=== PATIENT | male | born 1965 | race Caucasian/White ===

== ENCOUNTER → 2016-08-23 | Outpatient (CLI) | payer OTHER ==
--- NOTE | 2016-08-26 09:02 | REP ---
MR LUMBAR SPINE WITHOUT CONTRAST: HISTORY: Spondylosis. Decreased signal intensity on T2-weighted images is present in the L5-S1 intervertebral disc. The disc is decreased in height. These findings are consistent with disc degeneration. A diffuse disc bulge and small central disc protrusion are present at the L1-2 level. There is minimal compression of the thecal sac. The L1 nerves exit the neural foramina without compression. A diffuse disc bulge is present at the L1-2 level. There is minimal compression of the thecal sac. The L2 nerves exit the neural foramina without compression. There is no disc bulge or herniation at the L3-4 level. The L3 nerves exit the neural foramina without compression. A diffuse disc bulge is present at the L4-5 level. There is minimal compression of the thecal sac. There is hypertrophy of the posterior articulating facets. The L4 nerves exit the neural foramina without compression. A diffuse disc bulge is present at the L5-S1 level. There is minimal compression of the thecal sac. There is hypertrophy of the posterior articulating facets. There is compression of the L5 nerves in the neural foramina. The conus medullaris is normal in appearance terminating at the level of the L1-2 intervertebral disc. There is an old compression fracture of the L1 vertebral body with minimal height loss. Increased signal intensity on T2-weighted images is present in the endplates of the L1, L5, and S1 vertebral bodies. This represents degenerative change. IMPRESSION: 1. Diffuse disc bulge and small central disc protrusion at the L1-2 level with minimal thecal sac compression. 2. Diffuse disc bulges at the L2-3, L4-5, and L5-S1 levels with minimal thecal sac compression. Signed by Reji Mares MD 08/26/2016 09:19 A
--- NOTE | 2016-08-26 12:48 | REP ---
MR CERVICAL SPINE WITHOUT CONTRAST: HISTORY: Spondylosis. A disc bulge is present at the C5-6 level. There is minimal effacement of the thecal sac without spinal cord compression. Bilateral uncinate process hypertrophy is present. This produces moderate and mild narrowing of the right and left C5 neural foramen respectively. A disc bulge is present at the C6-7 level. There is minimal effacement of the thecal sac without spinal cord compression. Bilateral uncinate process hypertrophy is present. This produces minimal and mild narrowing of the right and left C6 neural foramina respectively. There is no other disc bulge or herniation. The remaining neural foramina are patent. The spinal cord is normal in signal intensity. The C6-7 intervertebral disc is decreased in height consistent with disc degeneration. Normal signal intensity is present in the cervical vertebral bodies. IMPRESSION: There is cervical spondylosis at the C5-6 and C6-7 levels without spinal cord compression. Signed by Reji Mares MD 08/26/2016 01:07 P
== END ==
LOC: M RAD 16:56
PROVIDERS: ATTEND Neurological Surgery
DX: M47.896 Other spondylosis, lumbar region (principal)

== ENCOUNTER → 2017-01-14 | Outpatient (CLI) | payer OTHER ==
[~2017-01-14] MED LIST: METHACHOLINE KIT (J7674) INH ONE
--- NOTE | 2017-01-14 14:46 | PFTRPT ---
Tech: Camille PINEDO RRT Age: 51 Sex: Male Race: Height: 70.50 Inches Weight: 252.00 Lbs BSA: 2.31 Diagnosis: R06.00 METHACHOLINE CHALLENGE REPORT: ORDERING PROVIDER: Sasha Badillo M.D. DATE OF SERVICE: 01/14/17 INTERPRETATION: The study was of excellent technical quality. Under protocol, methacholine was administered. Even after a maximal dose of 25 mg (188.875 CDUs) of methacholine , no provocation dose was ever achieved. IMPRESSION: Negative methacholine challenge study. MTDD
== END ==
LOC: M CARPUL 13:17
PROVIDERS: ATTEND Internal Medicine Pulmonary Disease
DX: R06.00 Dyspnea, unspecified (principal)

== ENCOUNTER 2020-10-12 18:21 | Emergency (ER) | payer MEDICARE, OTHER ==
[~2020-10-12] VITALS: Ht 182.9 cm; Wt 122.7 kg
[2020-10-12 18:55] LABS: BASO # 0.1 10^3/uL (0.0-0.2); BASO % 0.6 % (0.0-1.0); EOS # 0.4 10^3/uL (0.0-0.5); EOS % 4.8 % (0.0-3.0); HEMATOCRIT 44.4 % (42.0-52.0); HEMOGLOBIN 15.6 g/dl (13.5-17.5); LYMPH # 2.1 10^3/uL (1.5-5.0); LYMPH % 27.4 % (24.0-44.0); MEAN CORPUSCULAR HEMOGLOBIN 32.7 pg (27.0-33.0); MEAN CORPUSCULAR HGB CONC 35.1 g/dl (32.0-36.5); MEAN CORPUSCULAR VOLUME 93.1 fl (80.0-96.0); MONO # 0.7 10^3/uL (0.0-0.8); MONO % 8.8 % (2.0-8.0); NEUTROPHILS # 4.5 10^3/uL (1.5-8.5); NEUTROPHILS % 57.8 % (36.0-66.0); PLATELET COUNT, AUTOMATED 200 10^3/uL (150-450); RED BLOOD COUNT 4.77 10^6/uL (4.30-6.10); WHITE BLOOD COUNT 7.7 10^3/uL (4.0-10.0)
--- NOTE | 2020-10-12 19:20 | REP ---
INDICATION: DYSPNEA/COUGH. COMPARISON: None. TECHNIQUE: Portable FINDINGS: The technique utilized in obtaining the radiograph has magnified the cardiac silhouette and accentuated the interstitial markings. The superior mediastinal structures are midline. The cardiac silhouette is unremarkable in size, shape, and position. The diaphragmatic surfaces of the lungs are regular, and the costophrenic angles are clear. The pulmonary bowen are clear. The imaged osseous structures are intact. IMPRESSION: There is no acute cardiopulmonary disease. <Electronically signed by Antonio Carrizales > 10/12/201915
[2020-10-12 19:33] LABS: ALBUMIN 3.6 GM/DL (3.2-5.2); ALT/SGPT 64 U/L (12-78); BILIRUBIN,DIRECT < 0.1 MG/DL (0.0-0.2); BILIRUBIN,TOTAL 0.5 MG/DL (0.2-1.0); BLOOD UREA NITROGEN 6 MG/DL (7-18); CALCIUM LEVEL 7.8 MG/DL (8.5-10.1); CARBON DIOXIDE LEVEL 21 MEQ/L (21-32); CHLORIDE LEVEL 105 MEQ/L (98-107); CK-MB VALUE MASS < 1.0 NG/ML (<3.6); CPK CREATINE PHOSPHOKINASE 101 U/L (39-308); GLOMERULAR FILTRATION RATE > 60.0 (>56); GLUCOSE, FASTING 103 MG/DL (70-100); MB/CK RELATIVE INDEX 0.99 (< OR =4); NT-PRO BNP 312 PG/ML (<125); POTASSIUM SERUM 3.9 MEQ/L (3.5-5.1); SODIUM LEVEL 133 MEQ/L (136-145); TOTAL PROTEIN 7.1 GM/DL (6.4-8.2); TROPONIN I < 0.02 NG/ML (< 0.10)
[2020-10-12 21:23] LABS: INR 0.96
[2020-10-12 21:24] LABS: PARTIAL THROMBOPLASTIN TIME 33.9 SECONDS (24.2-38.5)
[2020-10-12 21:26] LABS: D-DIMER QUANT 318.53 ng/ml (<500)
[2020-10-12 22:14] VITALS: O2SAT 100
[2020-10-12 23:32] LABS: CK-MB VALUE MASS < 1.0 NG/ML (<3.6); CPK CREATINE PHOSPHOKINASE 84 U/L (39-308); MB/CK RELATIVE INDEX 1.19 (< OR =4); TROPONIN I < 0.02 NG/ML (< 0.10)
--- NOTE | 2020-10-12 23:45 | IPNPDOC ---
Text Note Date of Service The patient was seen on 10/12/20. NOTE The patient was not admitted to the medical floor; admission orders and labs were cancelled. VS,Bubbae, I+O VS, Jesus Albertobone, I+O Laboratory Tests 10/12/20 18:38 Vital Signs Date Time Temp Pulse Resp B/P (MAP) Pulse Ox O2 Delivery O2 Flow Rate FiO2 10/12/20 22:14 100 Room Air 10/12/20 22:06 75 10/12/20 18:59 10/12/20 18:29 97.1 20 OSMEL PACHECO MD October 12, 2020 23:45
[2020-10-12 23:49] VITALS: BP 117/79
--- NOTE | 2020-10-13 20:25 | ECGEPIP ---
[facility] - ED Test Date: 2020-10-12 Pat Name: NICOLE ALANIS Department: Room: - Gender: Male Gate Attendant: HC : 1965 Requested By: GUMARO Clark Order Number: [id number] Reading MD: Rachel Saunders Measurements Intervals [place] Rate: 73 P: 60 CO: 216 QRS: -18 QRSD: 114 T: 31 QT: 398 QTc: 438 Interpretive Statements Sinus rhythm with 1st degree AV block Incomplete right bundle branch block NSTTW abnormalities No prior Electronically Signed on 10-13-2020 20:25:01 EDT by Rachel Saunders
--- NOTE | 2020-10-13 20:30 | ECGEPIP ---
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
[2020-10-14 18:07] LABS: Lyme Disease IgG/IgM Antibodie <0.91 ISR (0.00-0.90); Lyme Disease IgM Ab Quantitati <0.80 index (0.00-0.79)
== END 2020-10-12 23:59 | disposition home or self-care (01) ==
LOC: M ED 18:21
DX: R06.02 Shortness of breath (principal); I48.91 Unspecified atrial fibrillation; E78.5 Hyperlipidemia, unspecified; I10 Essential (primary) hypertension; Z87.891 Personal history of nicotine dependence